=== PATIENT | female | born 1980 | race Caucasian/White ===

== ENCOUNTER 2021-02-16 09:15 | Outpatient (REF) | payer OTHER, SELFPAY ==
[2021-02-16 11:58] LABS: Hematocrit 37.4 % (37.0-47.0); Hemoglobin 12.1 g/dl (12.0-16.0); Mean Corpuscular HGB Conc 32.4 g/dl (31.0-35.0); Mean Corpuscular Hemoglobin 28.8 pg (27.0-33.0); Mean Platelet Volume 10.8 fL (9.4-12.3); Platelet Count 276 X10*3/uL (160-400); Red Cell Distribution Width 13.2 % (11.0-16.0); White Blood Count 6.1 X10*3/uL (4.8-10.8)
[2021-02-16 12:03] LABS: Appearance Urine HAZY; Color Urine YELLOW; Glucose Urine UA NEG (NEG); Leukocyte Esterase Urine NEG (NEG); Nitrite Urine NEG (NEG); Urine Blood TRACE (NEG); Urine Ketones NEG (NEG); Urine Protein NEG (NEG-TRACE)
[2021-02-16 12:08] LABS: Alanine Aminotransferase 25 U/L (0-31); Albumin Level 4.1 g/dL (3.5-5.0); Alkaline Phosphatase 62 U/L (39-117); Anion Gap 10 (12-20); Aspartate Amino Transferase 17 U/L (5-31); Bilirubin Total 0.4 mg/dL (0.0-1.0); Blood Urea Nitrogen 10 mg/dL (9-16); Calcium 8.8 mg/dL (8.4-10.2); Carbon Dioxide 26 mmol/L (22-29); Chloride 108 mmol/L (96-108); Cholesterol 160 mg/dL; Estimated Glomerular Filt Rate > 60; Glucose Fasting 96 mg/dL (60-99); HDL Cholesterol 48 mg/dL; Iron 67 mcg/dL (30-160); LDL Cholesterol Calculated 99 mg/dl; Percent Iron Saturation 19 % (15-50); Potassium 4.1 mmol/L (3.3-5.1); Sodium 140 mmol/L (135-145); Total Iron Binding Capacity 350 mcg/dL (228-428); Total Protein 7.1 g/dL (6.5-8.0); Triglycerides 67 mg/dL; Unsaturated Iron Binding 283 ug/dL
[2021-02-16 12:29] LABS: TSH reflex Free T4 1.31 uIU/mL (0.32-4.0); Vitamin D 25-OH Total 24.3 ng/mL (>30)
[2021-02-16 12:38] LABS: Mucus Urine 1+ /LPF; RBC Urine 0 /HPF (0); Squamous Epithelial Cell Urine TRACE /LPF; WBC Urine 0-2 /HPF (0-4)
== END 2021-02-16 09:16 | disposition home or self-care (01) ==
LOC: HO.HMGCLDS 09:15
PROVIDERS: PCP Internal Medicine; Visit Provider Internal Medicine
DX: Z00.00 Encounter for general adult medical examination without abnormal findings (principal)
CPT/HCPCS: 36415; 80053; 80061; 81001; 82306; 83540; 84443; 85027

== ENCOUNTER 2022-05-26 09:06 | Outpatient (REF) | payer OTHER, SELFPAY ==
[2022-05-26 11:12] LABS: MANUAL DIFF FLAG NO
[2022-05-26 11:20] LABS: Basophils Percent Auto 0.6 % (0-2); Eosinophils Absolute Auto 0.4 X10*3/uL (0.0-0.4); Eosinophils Percent Auto 4.9 % (0-4); Hematocrit 39.4 % (37.0-47.0); Hemoglobin 12.6 g/dl (12.0-16.0); Imm Gran Abs Auto 0.02 X10*3/uL (0.00-0.03); Imm Gran Pct Auto 0.3 % (0.0-0.4); Lymphocytes Absolute Auto 2.1 X10*3/uL (1.2-4.9); Lymphocytes Percent Auto 28.4 % (20-40); Mean Corpuscular Hemoglobin 28.5 pg (27.0-33.0); Mean Corpuscular Volume 89.1 fL (80.0-98.0); Mean Platelet Volume 11.7 fL (9.4-12.3); Monocytes Absolute Auto 0.5 X10*3/uL (0.1-1.2); Monocytes Percent Auto 6.4 % (2-11); Neutrophils Absolute Auto 4.3 x10*3/uL (2.0-8.3); Neutrophils Percent Auto 59.4 % (45-73); Platelet Count 233 X10*3/uL (160-400); Red Blood Count 4.42 X10*6/uL (4.20-5.50); Red Cell Distribution Width 13.3 % (11.0-16.0); White Blood Count 7.2 X10*3/uL (4.8-10.8)
[2022-05-26 11:42] LABS: Alanine Aminotransferase 31 U/L (0-31); Albumin Level 4.2 g/dL (3.5-5.0); Alkaline Phosphatase 59 U/L (39-117); Anion Gap 14 (12-20); Aspartate Amino Transferase 24 U/L (5-31); Bilirubin Total 0.9 mg/dL (0.0-1.0); Blood Urea Nitrogen 11 mg/dL (9-16); Calcium 8.6 mg/dL (8.4-10.2); Carbon Dioxide 21 mmol/L (22-29); Chloride 109 mmol/L (96-108); Cholesterol 208 mg/dL; Estimated Glomerular Filt Rate > 60; Glucose Fasting 99 mg/dL (60-99); HDL Cholesterol 64 mg/dL; LDL Cholesterol Calculated 126 mg/dl; Potassium 4.6 mmol/L (3.3-5.1); Sodium 139 mmol/L (135-145); Total Protein 7.1 g/dL (6.5-8.0); Triglycerides 92 mg/dL
[2022-05-26 11:59] LABS: Appearance Urine Clear; Color Urine Yellow; Glucose Urine UA Negative (Negative); Leukocyte Esterase Urine Negative (Negative); Nitrite Urine Negative (Negative); PH 6.5 (5.0-9.0); UMIC TRIGGER UA YES; Urine Blood Trace (Negative); Urine Ketones Negative (Negative); Urine Protein Negative (Neg-Trace)
[2022-05-26 12:00] LABS: TSH reflex Free T4 1.59 uIU/mL (0.32-4.0)
[2022-05-26 12:05] LABS: Bacteria Urine None Seen (None Seen); Hyaline Casts Urine 0-2 /LPF (0-2); Squamous Epithelial Cell Urine 0-2 /HPF (0-2); WBC Urine 0-5 /HPF (0-5)
== END 2022-05-26 09:07 | disposition home or self-care (01) ==
LOC: HO.HMGCLDS 09:06
PROVIDERS: PCP Internal Medicine; Visit Provider Internal Medicine
DX: Z00.00 Encounter for general adult medical examination without abnormal findings (principal)
CPT/HCPCS: 36415; 80053; 80061; 81001; 84443; 85025

== ENCOUNTER 2022-09-01 08:31 | Outpatient (AMB) | payer OTHER, SELFPAY ==
[2022-09-01 08:38] VITALS: BP 126/90; PULSE 78; O2SAT 98; BMI 25.2
--- NOTE | 2022-09-01 08:38 | A.OFFPC_ITS ---
Vital Signs 09/01/22 08:38 Height 5 ft 7 in Weight 161 lb BMI 25.2 BP 126/90 H Blood Pressure Location Rt brachial Position Sitting Pulse 78 Pulse Source Pulse Oximeter Pulse Oximetry (%) 98 Oxygen Delivery Method Room Air Intake Visit Reasons: Elevated BP Intake Note: Pt is here today for a sick visit. Pt c/o elevated BP headaches. Allergies oxycodone Allergy (Unknown, Verified 09/01/22 08:45) unknown penicillin V Allergy (Unknown, Verified 09/01/22 08:45) unknown Tobacco use date assessed: 09/01/22 Dental Screening Dental Screen Date: 09/01/22 Did you have a dental visit in the last 12 months?: Yes Did you have a dental problem in the last 6 months where you did not have access to dental care?: No Was dental information given to patient?: Patient has dentist HPI Elevated BP HPI Details Pt has noticed elevated BP and not feeling well 4 weeks ago. Pt reports starting GARZA starting at the back and feeling of hot, tightness in the neck lasting a few mins. Pt reports increased stress at work because of new employees. Patient has been checking her blood pressure occasionally with the readings up to 140/90. She has not been exercising regularly. Patient complains of recurrent sinusitis despite using Flonase and taking antihistamine on regular basis. She was diagnosed with seasonal allergies 5 years ago. Patient is interested in following up with instrument and control technician [facility] Medical History Allergic rhinitis Ankle fracture, lateral malleolus, closed Annual physical exam Normal pelvic exam Sinusitis Family History Father No problems noted. Mother No problems noted. Son No problems noted. Social History Housing: House Alcohol intake: current Alcohol intake frequency: holidays/special occasions only Patient Tobacco Use Status: Never used Tobacco e-Cigarette/Vaping Use: Never Used Current occupational status: employed Cognitive needs: No Hearing needs: No Vision needs: Yes Questionnaire Thrive Questionnaire Date Thrive assessed: 05/26/22 AUDIT C Alcohol Use Questionnaire (AUDIT-C) 1. How often do you have a drink containing alcohol?: Monthly or less 2. How many drinks containing alcohol do you have on a typical day when you are drinking?: 1 or 2 3. How often do you have six or more drinks on one occasion?: Never Total Score: 1 AYLIN-7 AMB Questionnaire AYLIN-7 Date AYLIN - 7 assessed: 05/26/22 Source: Developed by Drs. Joaquín Newton, Ivy De La O, Rashel Acuna and colleagues, with an educational hernandez from [employer]. Review of Systems Const All systems reviewed & are unremarkable except as noted in HPI and below Reports no additional complaints Eyes Reports no additional complaints ENT Reports no additional complaints Card Reports no additional complaints Resp Reports no additional complaints GI Reports no additional complaints Reports no additional complaints Physical exam (Primary Care) Vital Signs: Last Vital Signs Pulse 78 09/01/22 08:38 BP 126/90 H 09/01/22 08:38 Pulse Ox 98 09/01/22 08:38 Oxygen Delivery Method Room Air 09/01/22 08:38 BMI result Body Mass Index 25.2 Tobacco/Smoking Status: Tobacco use Status Tobacco use date assessed 09/01/22 09/01/22 08:49 Patient Tobacco Use Status Never used Tobacco 09/01/22 08:38 e-Cigarette/Vaping Use Never Used 09/01/22 08:38 Thrive Assessment: Date of Thrive Assessment Date Thrive assessed 05/26/22 09/01/22 08:38 Const General: no acute distress HENMT Head: Yes normal to inspection Ears: hearing grossly normal bilaterally General nose exam: Normal external nose present Face and sinus: Yes normal facial exam Mouth: Normal oral and palatal mucosa present Throat: Yes posterior oropharynx normal Eyes General: appearance normal, both eyes and all related structures Neck Neck: Yes no lymphadenopathy and Yes supple Resp Effort & Inspection: normal respiratory effort Auscultation: clear to auscultation bilaterally Cardio Rhythm: regular rhythm Heart sounds: S1 normal heart sound present and S2 normal heart sound present GI Inspection: Yes normal to inspection Palpation (GI): Soft to palpation Percussion: Yes normal to percussion Auscultation: normal bowel sounds External Female Exam: normal external appearance Assessment and Plan Assessment & Plan (1) Allergic rhinitis: Code(s): J30.9 - Allergic rhinitis, unspecified Plan: refer to instrument and control technician (2) Chronic sinusitis: Code(s): J32.9 - Chronic sinusitis, unspecified (3) Elevated blood pressure reading without diagnosis of hypertension: Code(s): R03.0 - Elevated blood-pressure reading, without diagnosis of hypertension Plan: Lifestyle modification including regular exercises low sodium diet discussed with the patient. she will follow-up in 2 months for blood pressure check Orders: Referrals Allergy & Immunology Referral J30.9 - Allergic rhinitis, unspecified, J32.9 - Chronic sinusitis, unspecified Coding Level of Care Code Est Pt Level 3 (10871) Diagnoses Allergic rhinitis J30.9 Chronic sinusitis J32.9 Elevated blood pressure reading without diagnosis of hypertension R03.0
== END 2022-09-01 09:48 | disposition home or self-care (01) ==
PROVIDERS: PCP Internal Medicine; Visit Provider Internal Medicine
DX: J30.9 Allergic rhinitis, unspecified (principal); J32.9 Chronic sinusitis, unspecified; R03.0 Elevated blood-pressure reading, without diagnosis of hypertension
CPT/HCPCS: 99213

== ENCOUNTER 2022-09-07 08:17 | Outpatient (AMB) | payer OTHER, SELFPAY ==
--- NOTE | 2022-09-07 08:39 | MHC.OFFWIV ---
Intake Vital Signs 09/07/22 08:40 Height 5 ft 7 in BP 138/80 Blood Pressure Location Lt brachial Position Sitting Pulse 79 Pulse Source Pulse Oximeter Temp 97.7 F Temp Source Temporal Artery Scan Pulse Oximetry (%) 98 Oxygen Delivery Method Room Air Intake Visit Reasons: EP, Bladder infection? Intake Note: Pt is here c/o possible bladder infection. Pt states frequent urination and swelling pain on her bladder. Pt states she is very itchy and feels a lot of pressure. Patient Tobacco Use Status: Never used Tobacco Allergies oxycodone Allergy (Unknown, Verified 09/07/22 08:39) unknown penicillin V Allergy (Unknown, Verified 09/07/22 08:39) unknown Do you need a note to return to daycare/school/sports/work: Yes HPI HPI Comments History of Present Illness Details 09 42-year-old female without significant medical history presents with fatigue, malaise, urinary frequency, urgency, dysuria for the past five days, she is concerned she may have a bladder infection. Patient reports she has had 1 before and it is felt similar. Patient reports symptoms are not improving. Patient going to the bathroom frequently, darker colored urine. Has tried AZO [id number] a few doses with little to no relief. Denies flank pain, back pain, nausea, vomiting, abdominal pain, headache, vision changes, dizziness, weakness, fevers and chills. No chest pain or shortness of breath. Physical exam benign. Likely cystitis versus UTI. Unlikely pyelonephritis, obstructing uropathy, acute abdomen. Other differentials include STDs which patient reports she is not concerned about or yeast infection but patient denies vaginal discharge. Plan Macrobid, Pyridium, PCP follow-up. Encouraged to drink plenty of fluids. Educated patient on diagnosis and treatment plan, answered all question, patient verbalizes understanding. At this time patient will be discharged home, advised to return with new or worsening symptoms. Educated on worrisome signs and symptoms and when to return. At this time I feel comfortable discharge home. [facility] Medical History Allergic rhinitis Ankle fracture, lateral malleolus, closed Annual physical exam Normal pelvic exam Sinusitis Family History Father No problems noted. Mother No problems noted. Son No problems noted. Social History Housing: House Alcohol intake: current Alcohol intake frequency: holidays/special occasions only Patient Tobacco Use Status: Never used Tobacco e-Cigarette/Vaping Use: Never Used Current occupational status: employed Cognitive needs: No Hearing needs: No Vision needs: Yes Review of Systems Const Details: Constitutional : No Weight loss, No Fever, No Chills, No Fatigue, No Malaise ENT/Mouth : No sore throat, No Rhinorrhea Eyes: No Eye Pain, No Swelling, No Redness Cardiovascular : No Chest Pain, No SOB, No Dyspnea on Exertion, No Orthopnea, No Edema, No Palpitations Respiratory : No Cough, No Sputum, No Wheezing Gastrointestinal : No Nausea, No Vomiting, No Diarrhea, No Constipation, No abdominal Pain, No Hematochezia, No Melena Genitourinary : + Dysuria, + Urinary Frequency, No Hematuria, Musculoskeletal : No joint pain, No Myalgias, No Joint Swelling Skin : No Skin Lesions, No rash Neuro : No Weakness, No Numbness, No Dizziness, No Headache Psych : No Anxiety/Panic, No Depression All other systems reviewed and are negative All systems reviewed & are unremarkable except as noted in HPI and below Physical Exam Vital Signs: Last Vital Signs Temp 97.7 F 09/07/22 08:40 Pulse 79 09/07/22 08:40 BP 138/80 09/07/22 08:40 Pulse Ox 98 09/07/22 08:40 Oxygen Delivery Method Room Air 09/07/22 08:40 vss Appearance: Alert.? Oriented X3.? No acute distress.? Head: Normocephalic, atraumatic, no step-offs or deformities Eyes: Pupils equal, round and reactive to light.? CVS: Normal heart rate and rhythm.? Pulses normal.? Respiratory: No respiratory distress.? Breath sounds normal.? Abdomen: Soft and nontender.? Skin: Skin warm and dry.? Normal skin color.? Normal skin turgor.? Extremities: No lower extremity edema.? No calf ttp. 5/5 strength to bilateral upper and lower extremities Back: No CVA tenderness bilaterally Neuro: Oriented X 3.? No motor deficit.? No sensory deficit. CN 2-12 intact Results AMB Urinalysis, Automated UA Leukoctes 0 Naz/uL Last Edit by Carmel Sales, RYAN on 09/07/22 08:57 UA Nitrite Negative Last Edit by Carmel Sales, PREPARATION SUPERVISOR [employer]ING on 09/07/22 08:57 UA Urobilinogen 0.2 mg/dL Last Edit by Carmel Sales, PREPARATION SUPERVISOR [employer]NING on 09/07/22 08:57 UA Protein 0 mg/dL Last Edit by Carmle Sales, PREPARATION SUPERVISOR [employer]ING on 09/07/22 08:57 UA pH 6.0 Last Edit by Carmel Sales, PREPARATION SUPERVISOR [employer]ING on 09/07/22 08:57 UA Blood 0 Ji/uL Last Edit by Carmel Sales, PREPARATION SUPERVISOR [employer]ING on 09/07/22 08:57 UA Specific [place] 1.015 Last Edit by Carmel Sales, PREPARATION SUPERVISOR [employer]ING on 09/07/22 08:57 UA Ketone Negative Last Edit by Carmel Sales, PREPARATION SUPERVISOR [employer]ING on 09/07/22 08:57 UA Bilirubin 0 mg/dL Last Edit by Carmel Sales, PREPARATION SUPERVISOR [employer]NING on 09/07/22 08:57 UA Glucose 0 mg/dL Last Edit by Carmel Sales, PREPARATION SUPERVISOR [employer]ING on 09/07/22 08:57 Results Reviewed Results Reviewed: Laboratory Last Values Urine pH (Auto) 6.0 09/07/22 08:56 Specific [place] (Auto) 1.015 09/07/22 08:56 Urine Protein (Auto) 0 mg/dL 09/07/22 08:56 Glucose (UA)(Auto) 0 mg/dL 09/07/22 08:56 Urine Ketones (Auto) Negative 09/07/22 08:56 Urine Blood (Auto) 0 Ji/uL 09/07/22 08:56 Urine Nitrite (Auto) Negative 09/07/22 08:56 Urine Bilirubin (Auto) 0 mg/dL 09/07/22 08:56 Urine Urobilinogen (Auto) 0.2 mg/dL 09/07/22 08:56 Leukocyte Esterase (Auto) 0 Naz/uL 09/07/22 08:56 Assessment & Plan Assessment & Plan (1) UTI symptoms: Code(s): R39.9 - Unspecified symptoms and signs involving the genitourinary system Plan Take your medications as prescribed. If you were prescribed antibiotics today, it is important that you take your medication to their entirety, do not skip any doses, do not finish them early. Follow-up with your primary care provider this week. Return to the emergency department with new or worsening symptoms. Such as fevers, chills, chest pain, shortness of breath, nausea, vomiting, dizziness, headache, vision changes, lethargy In case of emergency call 911 Orders: Orders AMB Urinalysis Automated Today Z13.9 - Encounter for screening, unspecified Medications: New nitrofurantoin monohyd/m-cryst 100 mg (Macrobid) must administer with a meal/food 100 mg PO BID 5 days 10 caps 0RF phenazopyridine (Pyridium) 200 mg PO TID 6 doses 6 tabs 0RF Coding Level of Care Code Est Pt Level 3 (72560) Diagnoses UTI symptoms R39.9
[2022-09-07 08:40] VITALS: BP 138/80; PULSE 79; TEMP 36.5; O2SAT 98
== END 2022-09-07 09:10 | disposition home or self-care (01) ==
PROVIDERS: PCP Internal Medicine; Visit Provider Physician Assistant
DX: Z13.9 Encounter for screening, unspecified (principal); R39.9 Unspecified symptoms and signs involving the genitourinary system
CPT/HCPCS: 81003; 99213

== ENCOUNTER 2022-11-30 11:42 | Outpatient (AMB) | payer OTHER, SELFPAY ==
[2022-11-30 11:49] VITALS: BP 138/88; PULSE 87; O2SAT 100; BMI 26.0
--- NOTE | 2022-11-30 11:49 | MHC.PC.OV ---
Vital Signs 11/30/22 11:49 Height 5 ft 7 in Weight 166 lb BMI 26.0 BP 138/88 Blood Pressure Location Lt brachial Position Sitting Pulse 87 Pulse Source Pulse Oximeter Pulse Oximetry (%) 100 Oxygen Delivery Method Room Air Intake Visit Reasons: 2m follow up Intake Note: Pt is here today for 2 months follow up visit on BP. Allergies oxycodone Allergy (Unknown, Verified 11/30/22 11:56) unknown penicillin V Allergy (Unknown, Verified 11/30/22 11:56) unknown Medication List - Last Reconciled 11/30/22 by Eveline Chung MD cetirizine (Zyrtec) 10 mg PO DAILY PRN multivitamin 1 tab PO DAILY norethindrone (contraceptive) (Incassia) 0.35 mg PO DAILY olmesartan 5 mg PO DAILY phenazopyridine (Pyridium) 200 mg PO TID 6 doses Tobacco use date assessed: 09/01/22 HPI 2m follow up HPI Details Pt presents complaining of elevated blood pressure and headaches on and off. She has been following low sodium diet and denies excessive stress. [facility] Medical History Allergic rhinitis Ankle fracture, lateral malleolus, closed Annual physical exam Normal pelvic exam Sinusitis Family History Father No problems noted. Mother No problems noted. Son No problems noted. Social History Housing: House Alcohol intake: current Alcohol intake frequency: holidays/special occasions only Patient Tobacco Use Status: Never used Tobacco e-Cigarette/Vaping Use: Never Used Current occupational status: employed Cognitive needs: No Hearing needs: No Vision needs: Yes Questionnaire Thrive Questionnaire Date Thrive assessed: 05/26/22 AYLIN-7 AMB Questionnaire AYLIN-7 Date AYLIN - 7 assessed: 05/26/22 Source: Developed by Drs. Joaquín Newton, Ivy De La O, Rashel Acuna and colleagues, with an educational hernandez from [employer]. Review of Systems Const All systems reviewed & are unremarkable except as noted in HPI and below Reports no additional complaints Eyes Reports no additional complaints ENT Reports no additional complaints Card Reports no additional complaints Resp Reports no additional complaints GI Reports no additional complaints Reports no additional complaints Physical exam (Primary Care) Vital Signs: Last Vital Signs Pulse 87 11/30/22 11:49 BP 138/88 11/30/22 11:49 Pulse Ox 100 11/30/22 11:49 Oxygen Delivery Method Room Air 11/30/22 11:49 BMI result Body Mass Index 26.0 Tobacco/Smoking Status: Tobacco use Status Tobacco use date assessed 09/01/22 11/30/22 11:49 Patient Tobacco Use Status Never used Tobacco 11/30/22 11:49 e-Cigarette/Vaping Use Never Used 11/30/22 11:49 Thrive Assessment: Date of Thrive Assessment Date Thrive assessed 05/26/22 11/30/22 11:49 Const General: no acute distress HENMT Head: Yes normal to inspection Ears: hearing grossly normal bilaterally Neck Neck: Yes supple Resp Effort & Inspection: normal respiratory effort Auscultation: clear to auscultation bilaterally Cardio Rhythm: regular rhythm Heart sounds: S1 normal heart sound present and S2 normal heart sound present GI Inspection: Yes normal to inspection Palpation (GI): Soft to palpation Percussion: Yes normal to percussion Assessment and Plan Assessment & Plan (1) HTN (hypertension): Code(s): I10 - Essential (primary) hypertension Plan: Start olmesartan 5 mg q.d., follow low sodium diet and increase physical activity. Follow-up in 1 month for blood pressure check and fasting labs before Orders: Orders Comprehensive [place]. Panel Fast 1 Month I10 - Essential (primary) hypertension Lipid Panel 1 Month I10 - Essential (primary) hypertension Complete Blood Count Auto Diff 1 Month I10 - Essential (primary) hypertension Medications: New olmesartan 5 mg PO DAILY 30 tabs 1RF Coding Level of Care Code Est Pt Level 3 (09145) Diagnoses HTN (hypertension) I10
== END 2022-11-30 13:31 | disposition home or self-care (01) ==
PROVIDERS: PCP Internal Medicine; Visit Provider Internal Medicine
DX: I10 Essential (primary) hypertension (principal)
CPT/HCPCS: 99213

== ENCOUNTER 2022-12-22 07:32 | Outpatient (REF) | payer OTHER, SELFPAY ==
[2022-12-22 11:07] LABS: MANUAL DIFF FLAG NO
[2022-12-22 11:09] LABS: Basophils Percent Auto 0.5 % (0-2); Eosinophils Absolute Auto 0.3 X10*3/uL (0.0-0.4); Eosinophils Percent Auto 4.2 % (0-4); Hematocrit 39.1 % (37.0-47.0); Hemoglobin 12.5 g/dl (12.0-16.0); Imm Gran Abs Auto 0.02 X10*3/uL (0.00-0.03); Imm Gran Pct Auto 0.3 % (0.0-0.4); Lymphocytes Absolute Auto 2.1 X10*3/uL (1.2-4.9); Lymphocytes Percent Auto 33.5 % (20-40); Mean Corpuscular Volume 90.7 fL (80.0-98.0); Mean Platelet Volume 10.9 fL (9.4-12.3); Monocytes Absolute Auto 0.4 X10*3/uL (0.1-1.2); Monocytes Percent Auto 6.1 % (2-11); Neutrophils Absolute Auto 3.5 x10*3/uL (2.0-8.3); Neutrophils Percent Auto 55.4 % (45-73); Platelet Count 261 X10*3/uL (160-400); Red Blood Count 4.31 X10*6/uL (4.20-5.50); Red Cell Distribution Width 13.2 % (11.0-16.0); White Blood Count 6.3 X10*3/uL (4.8-10.8)
[2022-12-22 11:42] LABS: Alanine Aminotransferase 12 U/L (0-31); Albumin Level 4.2 g/dL (3.5-5.0); Alkaline Phosphatase 56 U/L (39-117); Anion Gap 10 (12-20); Aspartate Amino Transferase 15 U/L (5-31); Bilirubin Total 0.4 mg/dL (0.0-1.0); Blood Urea Nitrogen 12 mg/dL (9-16); Calcium 8.9 mg/dL (8.4-10.2); Carbon Dioxide 26 mmol/L (22-29); Chloride 108 mmol/L (96-108); Cholesterol 186 mg/dL (<200); Estimated Glomerular Filt Rate > 60; Glucose Fasting 96 mg/dL (60-99); HDL Cholesterol 55 mg/dL (>40); LDL Cholesterol Calculated 111 mg/dL (<100); Potassium 3.9 mmol/L (3.3-5.1); Sodium 140 mmol/L (135-145); Total Protein 7.4 g/dL (6.5-8.0); Triglycerides 103 mg/dL (<150)
== END 2022-12-22 07:33 | disposition home or self-care (01) ==
LOC: HO.HMGCLDS 07:32
PROVIDERS: PCP Internal Medicine; Visit Provider Internal Medicine
DX: I10 Essential (primary) hypertension (principal)
CPT/HCPCS: 36415; 80053; 80061; 85025

== ENCOUNTER 2023-01-12 12:40 | Outpatient (AMB) | payer OTHER, SELFPAY ==
[2023-01-12 12:46] VITALS: BP 122/74; PULSE 92; O2SAT 97; BMI 25.4
--- NOTE | 2023-01-12 12:46 | A.OFFPC_ITS ---
Vital Signs 01/12/23 12:46 Height 5 ft 7 in Weight 162 lb BMI 25.4 BP 122/74 Blood Pressure Location Lt brachial Position Sitting Pulse 92 Pulse Source Pulse Oximeter Pulse Oximetry (%) 97 Oxygen Delivery Method Room Air Intake Visit Reasons: one month fu Intake Note: Pt is here today for one follow up visit on BP. Allergies oxycodone Allergy (Unknown, Verified 01/12/23 12:50) unknown penicillin V Allergy (Unknown, Verified 01/12/23 12:50) unknown Medication List - Last Reconciled 01/12/23 by Eveline Chung MD cetirizine (Zyrtec) 10 mg PO DAILY PRN multivitamin 1 tab PO DAILY norethindrone (contraceptive) (Incassia) 0.35 mg PO DAILY olmesartan 5 mg PO DAILY phenazopyridine (Pyridium) 200 mg PO TID 6 doses Tobacco use date assessed: 01/12/23 Dental Screening Dental Screen Date: 01/12/23 Did you have a dental visit in the last 12 months?: Yes Did you have a dental problem in the last 6 months where you did not have access to dental care?: No Was dental information given to patient?: Patient has dentist HPI one month fu HPI Details Pt presents for f/u HTN, better on Olmesartan. Pt c/o dysuria and increased urinary frequency for 2 days, no fever, chiils, abd pain PFSH Medical History Allergic rhinitis Ankle fracture, lateral malleolus, closed Annual physical exam Normal pelvic exam Sinusitis Family History Father No problems noted. Mother No problems noted. Son No problems noted. Social History Housing: House Alcohol intake: current Alcohol intake frequency: holidays/special occasions only Patient Tobacco Use Status: Never used Tobacco e-Cigarette/Vaping Use: Never Used Current occupational status: employed Cognitive needs: No Hearing needs: No Vision needs: Yes Questionnaire Thrive Questionnaire Date Thrive assessed: 05/26/22 AYLIN-7 AMB Questionnaire AYLIN-7 Date AYLIN - 7 assessed: 05/26/22 Source: Developed by Drs. Joaquín Newton, Ivy De La O, Rashel Acuna and colleagues, with an educational hernandez from [employer]. Review of Systems Const All systems reviewed & are unremarkable except as noted in HPI and below Reports no additional complaints Eyes Reports no additional complaints ENT Reports no additional complaints Card Reports no additional complaints Resp Reports no additional complaints GI Reports no additional complaints Physical exam (Primary Care) Vital Signs: Last Vital Signs Pulse 92 01/12/23 12:46 BP 122/74 01/12/23 12:46 Pulse Ox 97 01/12/23 12:46 Oxygen Delivery Method Room Air 01/12/23 12:46 BMI result Body Mass Index 25.4 Tobacco/Smoking Status: Tobacco use Status Tobacco use date assessed 01/12/23 01/12/23 12:55 Patient Tobacco Use Status Never used Tobacco 01/12/23 12:55 e-Cigarette/Vaping Use Never Used 01/12/23 12:55 Thrive Assessment: Date of Thrive Assessment Date Thrive assessed 05/26/22 01/12/23 12:55 Const General: no acute distress HENMT Head: Yes normal to inspection Neck Neck: Yes supple Resp Effort & Inspection: normal respiratory effort Auscultation: clear to auscultation bilaterally Cardio Rhythm: regular rhythm Heart sounds: S1 normal heart sound present and S2 normal heart sound present GI Inspection: Yes normal to inspection Palpation (GI): Soft to palpation Auscultation: normal bowel sounds Assessment and Plan Assessment & Plan (1) HTN (hypertension): Code(s): I10 - Essential (primary) hypertension Plan: cont med, f/u 6 months (2) Dysuria: Code(s): R30.0 - Dysuria Plan: check UA, tx with Cipro for 3 days Orders: Orders UA CC w/rflx Micro + Cult Today I10 - Essential (primary) hypertension, R30.0 - Dysuria Medications: New ciprofloxacin HCl 250 mg PO BID 6 tabs 0RF Refilled olmesartan 5 mg PO DAILY 90 tabs 3RF Coding Level of Care Code Est Pt Level 3 (62709) Diagnoses HTN (hypertension) I10 Dysuria R30.0
== END 2023-01-12 13:42 | disposition home or self-care (01) ==
PROVIDERS: PCP Internal Medicine; Visit Provider Internal Medicine
DX: I10 Essential (primary) hypertension (principal); R30.0 Dysuria
CPT/HCPCS: 99213

== ENCOUNTER 2023-01-12 13:38 | Outpatient (REF) | payer OTHER, SELFPAY ==
[2023-01-12 16:09] LABS: Appearance Urine Clear; Color Urine Yellow; Glucose Urine UA Negative (Negative); Leukocyte Esterase Urine Small (1+) (Negative); Nitrite Urine Negative (Negative); Specific Gravity - Urine 1.025 (1.005-1.025); UMIC TRIGGER UACC YES; Urine Blood Small (1+) (Negative); Urine Ketones Negative (Negative); Urine Protein Negative (Neg-Trace)
[2023-01-12 16:14] LABS: Bacteria Urine None Seen (None Seen); Hyaline Casts Urine 0-2 /LPF (0-2); Squamous Epithelial Cell Urine 0-2 /HPF (0-2); UACC Culture Trigger YES; WBC Urine 21-50 /HPF (0-5)
== END 2023-01-12 13:39 | disposition home or self-care (01) ==
LOC: HO.HMGCLDS 13:38
PROVIDERS: PCP Internal Medicine; Visit Provider Internal Medicine
DX: R30.0 Dysuria (principal); I10 Essential (primary) hypertension
CPT/HCPCS: 81001; 87086; 87088; 87186

== ENCOUNTER 2023-06-02 08:06 | Outpatient (AMB) | payer BC, SELFPAY ==
[2023-06-02 08:09] VITALS: BP 120/70; PULSE 89; O2SAT 95; BMI 23.3
--- NOTE | 2023-06-02 08:09 | MHC.PC.OV ---
Vital Signs 06/02/23 08:09 Height 5 ft 7 in Weight 149 lb BMI 23.3 BP 120/70 Blood Pressure Location Rt brachial Position Sitting Pulse 89 Pulse Source Pulse Oximeter Pulse Oximetry (%) 95 Oxygen Delivery Method Room Air Intake Visit Reasons: PE Intake Note: Pt is here today for PE. Allergies oxycodone Allergy (Unknown, Verified 06/02/23 08:11) unknown penicillin V Allergy (Unknown, Verified 06/02/23 08:11) unknown Medication List - Last Reconciled 06/02/23 by Eveline Chung MD cetirizine (Zyrtec) 10 mg PO DAILY PRN multivitamin 1 tab PO DAILY norethindrone (contraceptive) (Incassia) 0.35 mg PO DAILY olmesartan 5 mg PO DAILY Tobacco use date assessed: 06/02/23 Dental Screening Dental Screen Date: 06/02/23 Did you have a dental visit in the last 12 months?: Yes Did you have a dental problem in the last 6 months where you did not have access to dental care?: No Was dental information given to patient?: Patient has dentist HPI PE HPI Details Pt presents for PE. PFSH Medical History Normal pelvic exam Annual physical exam Allergic rhinitis Sinusitis Ankle fracture, lateral malleolus, closed Surgical History Hx of section Family History Father No problems noted. Mother No problems noted. Son No problems noted. Social History Housing: House Alcohol intake: current Alcohol intake frequency: holidays/special occasions only Patient Tobacco Use Status: Never used Tobacco e-Cigarette/Vaping Use: Never Used service: No Current occupational status: employed Cognitive needs: No Hearing needs: No Vision needs: Yes Questionnaire PHQ-9 Over the last 2 weeks, how often have you been bothered by any of the following problems? 1. Little interest or pleasure in doing things: not at all 2. Feeling down, depressed, or hopeless: not at all 3. Trouble falling or staying asleep, or sleeping too much: not at all 4. Feeling tired or having little energy: not at all 5. Poor appetite or overeating: not at all 6. Feeling bad about yourself - or that you are a failure or have let yourself or your family down: not at all 7. Trouble concentrating on things, such as reading the newspaper or watching television: not at all 8. Moving or speaking so slowly that other people could have noticed. Or the opposite - being so fidgety or restless that you have been moving around a lot more than usual: not at all 9. Thoughts that you would be better off or of hurting yourself in some way: not at all Total score: 0 Depression Screening Interpretation: Negative Depression Screening Done: Yes Source: Developed by Drs. Joaquín Newton, Ivy De La O, Rashel Acuna and colleagues, with an educational hernandez from [employer]. Thrive Questionnaire Date Thrive assessed: 06/02/23 I am a: Patient What is your living situation today?: I have a steady place to live Within the past 12 months, did the food you bought not last and you didn't have the money to get more?: Never true Within the past 12 months, did you worry whether your food would run out before you got money to buy more?: Never true Do you have trouble paying for medicines?: No Do you have trouble getting transportation to medical appointments?: No Do you have trouble paying your heating and electricity bill?: No Do you have trouble taking care of your child, family member or friend?: No Do you have trouble with day-to-day activities such as bathing, preparing meals, shopping, managing finances, etc.?: No Are you currently unemployed and looking for a job?: No Are you interested in more education?: No Please select the resources that you would like help with: None THRIVE Score: 0 AUDIT C Alcohol Use Questionnaire (AUDIT-C) 1. How often do you have a drink containing alcohol?: Monthly or less 2. How many drinks containing alcohol do you have on a typical day when you are drinking?: 1 or 2 3. How often do you have six or more drinks on one occasion?: Never Total Score: 1 AYLIN-7 AMB Questionnaire AYLIN-7 Date AYLIN - 7 assessed: 06/02/23 Feeling nervous, anxious, or on edge: 0 = Not at all Not being able to stop or control worryin = Not at all Worrying too much about different things: 0 = Not at all Trouble relaxin = Not at all Being so restless that it is hard to sit still: 0 = Not at all Becoming easily annoyed or irritable: 0 = Not at all Feeling afraid as if something awful might happen: 0 = Not at all Total AYLIN-7 score (0-4 normal; 5-9 mild; 10-14 moderate; 15-21 severe): 0 Source: Developed by Drs. Joaquín Newton, Ivy De La O, Rashel Acuna and colleagues, with an educational hernandez from [employer]. Review of Systems Const All systems reviewed & are unremarkable except as noted in HPI and below Reports no additional complaints Eyes Reports no additional complaints ENT Reports no additional complaints Card Reports no additional complaints Resp Reports no additional complaints GI Reports no additional complaints Reports no additional complaints Physical exam (Primary Care) Vital Signs: Last Vital Signs Pulse 89 06/02/23 08:09 BP 120/70 06/02/23 08:09 Pulse Ox 95 06/02/23 08:09 Oxygen Delivery Method Room Air 06/02/23 08:09 BMI result Body Mass Index 23.3 Tobacco/Smoking Status: Tobacco use Status Tobacco use date assessed 06/02/23 06/02/23 08:15 Patient Tobacco Use Status Never used Tobacco 06/02/23 08:15 e-Cigarette/Vaping Use Never Used 06/02/23 08:15 PHQ-9: PHQ-9 Score PHQ-9: Total score 0 06/02/23 08:42 Depression Screening Interpretation: Negative Thrive Assessment: Date of Thrive Assessment Date Thrive assessed 06/02/23 06/02/23 08:42 Const General: no acute distress HENMT Head: Yes normal to inspection Ears: hearing grossly normal bilaterally General nose exam: Normal external nose present Face and sinus: Yes normal facial exam Mouth: Normal oral and palatal mucosa present Throat: Yes posterior oropharynx normal Eyes General: appearance normal, both eyes and all related structures Neck Neck: Yes supple Resp Effort & Inspection: normal respiratory effort Auscultation: clear to auscultation bilaterally Cardio Rhythm: regular rhythm Heart sounds: S1 normal heart sound present and S2 normal heart sound present GI Inspection: Yes normal to inspection Palpation (GI): Soft to palpation Percussion: Yes normal to percussion Auscultation: normal bowel sounds Assessment and Plan Assessment & Plan (1) Annual physical exam: Code(s): Z00.00 - Encounter for general adult medical examination without abnormal findings Plan: Well-balanced diet regular physical activity discussed with the patient she is up-to-date with the Pap smear and mammogram by camera operator (2) HTN (hypertension): Code(s): I10 - Essential (primary) hypertension Plan: Continue olmesartan follow-up in 6 months Orders: Orders Comprehensive [place]. Panel Fast Today I10 - Essential (primary) hypertension, Z00.00 - Encounter for general adult medical examination without abnormal findings Lipid Panel Today I10 - Essential (primary) hypertension, Z00.00 - Encounter for general adult medical examination without abnormal findings Complete Blood Count Auto Diff Today I10 - Essential (primary) hypertension, Z00.00 - Encounter for general adult medical examination without abnormal findings TSH reflex Free T4 Today I10 - Essential (primary) hypertension, Z00.00 - Encounter for general adult medical examination without abnormal findings UA and rflx microscopic Today R30.0 - Dysuria Coding Level of Care Code Est Pt Prev Care 40-64y(24249) Diagnoses Annual physical exam Z00.00 HTN (hypertension) I10
== END 2023-06-02 09:00 | disposition home or self-care (01) ==
PROVIDERS: Visit Provider Internal Medicine
DX: Z00.00 Encounter for general adult medical examination without abnormal findings (principal); I10 Essential (primary) hypertension
CPT/HCPCS: 99396

== ENCOUNTER 2023-06-02 08:42 | Outpatient (REF) | payer BC, SELFPAY ==
[2023-06-02 10:20] LABS: MANUAL DIFF FLAG NO
[2023-06-02 10:32] LABS: Appearance Urine Clear; Color Urine Yellow; Glucose Urine UA Negative (Negative); Leukocyte Esterase Urine Negative (Negative); Nitrite Urine Negative (Negative); PH 6.5 (5.0-9.0); Specific Gravity - Urine 1.015 (1.005-1.025); Urine Blood Negative (Negative); Urine Ketones Negative (Negative); Urine Protein Negative (Neg-Trace)
[2023-06-02 10:34] LABS: Basophils Percent Auto 0.4 % (0-2); Eosinophils Absolute Auto 0.3 X10*3/uL (0.0-0.4); Eosinophils Percent Auto 3.7 % (0-4); Hematocrit 36.6 % (37.0-47.0); Hemoglobin 11.9 g/dl (12.0-16.0); Imm Gran Abs Auto 0.03 X10*3/uL (0.00-0.03); Imm Gran Pct Auto 0.4 % (0.0-0.4); Mean Corpuscular HGB Conc 32.5 g/dl (31.0-35.0); Mean Corpuscular Hemoglobin 29.6 pg (27.0-33.0); Mean Platelet Volume 10.4 fL (9.4-12.3); Monocytes Absolute Auto 0.4 X10*3/uL (0.1-1.2); Monocytes Percent Auto 5.6 % (2-11); Neutrophils Absolute Auto 5.1 x10*3/uL (2.0-8.3); Neutrophils Percent Auto 64.9 % (45-73); Platelet Count 273 X10*3/uL (160-400); Red Blood Count 4.02 X10*6/uL (4.20-5.50); Red Cell Distribution Width 13.3 % (11.0-16.0); White Blood Count 7.8 X10*3/uL (4.8-10.8)
[2023-06-02 11:05] LABS: Alanine Aminotransferase 11 U/L (0-31); Albumin Level 4.1 g/dL (3.5-5.0); Alkaline Phosphatase 55 U/L (39-117); Anion Gap 9 (12-20); Aspartate Amino Transferase 13 U/L (5-31); Bilirubin Total 0.6 mg/dL (0.0-1.0); Blood Urea Nitrogen 12 mg/dL (9-16); Calcium 8.6 mg/dL (8.4-10.2); Carbon Dioxide 26 mmol/L (22-29); Chloride 108 mmol/L (96-108); Cholesterol 170 mg/dL (<200); Estimated Glomerular Filt Rate > 60; Glucose Fasting 93 mg/dL (60-99); HDL Cholesterol 58 mg/dL (>40); LDL Cholesterol Calculated 100 mg/dL (<100); Potassium 3.8 mmol/L (3.3-5.1); Sodium 139 mmol/L (135-145); Total Protein 7.1 g/dL (6.5-8.0); Triglycerides 62 mg/dL (<150)
[2023-06-02 11:07] LABS: TSH reflex Free T4 0.99 uIU/mL (0.32-4.0)
== END 2023-06-02 08:43 | disposition home or self-care (01) ==
LOC: HO.HMGCLDS 08:42
PROVIDERS: PCP Internal Medicine; Visit Provider Internal Medicine
DX: Z00.00 Encounter for general adult medical examination without abnormal findings (principal); I10 Essential (primary) hypertension; R30.0 Dysuria
CPT/HCPCS: 36415; 80053; 80061; 81003; 84443; 85025

== ENCOUNTER 2024-06-05 09:15 | Outpatient (AMB) | payer BC, SELFPAY ==
[2024-06-05 09:21] VITALS: BP 116/74; PULSE 78; RESP 18; TEMP 37.1; O2SAT 100; BMI 23.0
--- NOTE | 2024-06-05 09:21 | A.OFFPC_ITS ---
Vital Signs 06/05/24 09:21 Height 5 ft 7 in Weight 147 lb BMI 23.0 BP 116/74 Blood Pressure Location Lt brachial Position Sitting Respiration 18 Pulse 78 Pulse Source Pulse Oximeter Temp 98.7 F Temp Source Oral Pulse Oximetry (%) 100 Oxygen Delivery Method Room Air Intake Visit Reasons: Annual PE Intake Note: Pt is here today for PE. Pt is fasting today. Allergies oxycodone Allergy (Unknown, Verified 06/05/24 09:23) unknown penicillin V Allergy (Unknown, Verified 06/05/24 09:23) unknown Medication List - Last Reconciled 06/05/24 by Eveline Chung MD cetirizine (Zyrtec) 10 mg PO DAILY PRN multivitamin 1 tab PO DAILY norethindrone (contraceptive) (Incassia) 0.35 mg PO DAILY olmesartan 5 mg PO DAILY Tobacco use date assessed: 06/05/24 Dental Screening Dental Screen Date: 06/05/24 Did you have a dental visit in the last 12 months?: Yes Did you have a dental problem in the last 6 months where you did not have access to dental care?: No Was dental information given to patient?: Patient has dentist HPI Annual PE HPI Details [facility] Medical History Normal pelvic exam Annual physical exam Allergic rhinitis Sinusitis Ankle fracture, lateral malleolus, closed Surgical History Hx of section Family History Father No problems noted. Mother No problems noted. Son No problems noted. Social History Housing: House Alcohol intake: current Alcohol intake frequency: holidays/special occasions only Patient Tobacco Use Status: Never used Tobacco e-Cigarette/Vaping Use: Never Used service: No Current occupational status: employed Cognitive needs: No Hearing needs: No Vision needs: Yes Questionnaire PHQ-9 Over the last 2 weeks, how often have you been bothered by any of the following problems? 1. Little interest or pleasure in doing things: not at all 2. Feeling down, depressed, or hopeless: not at all 3. Trouble falling or staying asleep, or sleeping too much: not at all 4. Feeling tired or having little energy: not at all 5. Poor appetite or overeating: not at all 6. Feeling bad about yourself - or that you are a failure or have let yourself or your family down: not at all 7. Trouble concentrating on things, such as reading the newspaper or watching television: not at all 8. Moving or speaking so slowly that other people could have noticed. Or the opposite - being so fidgety or restless that you have been moving around a lot more than usual: not at all 9. Thoughts that you would be better off or of hurting yourself in some way: not at all Total score: 0 Depression Screening Interpretation: Negative Depression Screening Done: Yes [id number] - PHQ-9 Billing: Yes Source: Developed by Drs. Joaquín Newton, Ivy De La O, Rashel Acuna and colleagues, with an educational hernandez from [employer]. Thrive Questionnaire Date Thrive assessed: 06/05/24 I am a: Patient What is your living situation today?: I have a steady place to live Within the past 12 months, did the food you bought not last and you didn't have the money to get more?: Never true Within the past 12 months, did you worry whether your food would run out before you got money to buy more?: Never true Do you have trouble paying for medicines?: No Do you have trouble getting transportation to medical appointments?: No Do you have trouble paying your heating and electricity bill?: No Do you have trouble taking care of your child, family member or friend?: No Do you have trouble with day-to-day activities such as bathing, preparing meals, shopping, managing finances, etc.?: No Are you currently unemployed and looking for a job?: No Are you interested in more education?: No Please select the resources that you would like help with: None Currently or been in a relationship where the following occur: No concerns reported THRIVE Score: 0 AUDIT C Alcohol Use Questionnaire (AUDIT-C) 1. How often do you have a drink containing alcohol?: Monthly or less 2. How many drinks containing alcohol do you have on a typical day when you are drinking?: 1 or 2 3. How often do you have six or more drinks on one occasion?: Never Total Score: 1 AYLIN-7 AMB Questionnaire AYLIN-7 Date AYLIN - 7 assessed: 06/05/24 Feeling nervous, anxious, or on edge: 0 = Not at all Not being able to stop or control worryin = Not at all Worrying too much about different things: 0 = Not at all Trouble relaxin = Not at all Being so restless that it is hard to sit still: 0 = Not at all Becoming easily annoyed or irritable: 0 = Not at all Feeling afraid as if something awful might happen: 0 = Not at all Total AYLIN-7 score (0-4 normal; 5-9 mild; 10-14 moderate; 15-21 severe): 0 Source: Developed by Drs. Joaquín Newton, Ivy De La O, Rashel Acuna and colleagues, with an educational hernandez from [employer] AYLIN-7 Assessment Billing AYLIN-7 Assessment Tool: AYLIN-7 Assessment 99323 Review of Systems Const All systems reviewed & are unremarkable except as noted in HPI and below Reports no additional complaints Eyes Reports no additional complaints ENT Reports no additional complaints Card Reports no additional complaints Resp Reports no additional complaints GI Reports no additional complaints Reports no additional complaints Physical exam (Primary Care) Vital Signs: Last Vital Signs Temp 98.7 F 06/05/24 09:21 Pulse 78 06/05/24 09:21 Resp 18 06/05/24 09:21 BP 116/74 06/05/24 09:21 Pulse Ox 100 06/05/24 09:21 Oxygen Delivery Method Room Air 06/05/24 09:21 BMI result Body Mass Index 23.0 Tobacco/Smoking Status: Tobacco use Status Tobacco use date assessed 06/05/24 06/05/24 09:30 Patient Tobacco Use Status Never used Tobacco 06/05/24 09:30 e-Cigarette/Vaping Use Never Used 06/05/24 09:30 PHQ-9: PHQ-9 Score PHQ-9: Total score 0 06/05/24 09:30 Depression Screening Interpretation: Negative Thrive Assessment: Date of Thrive Assessment Date Thrive assessed 06/05/24 06/05/24 09:30 Currently or been in a relationship where the following occur: No concerns reported Const General: no acute distress HENMT Head: Yes normal to inspection Ears: hearing grossly normal bilaterally Face and sinus: Yes normal facial exam Mouth: Normal oral and palatal mucosa present Throat: Yes posterior oropharynx normal Eyes General: appearance normal, both eyes and all related structures Neck Neck: Yes no lymphadenopathy and Yes supple Resp Effort & Inspection: normal respiratory effort Auscultation: clear to auscultation bilaterally Cardio Rhythm: regular rhythm Heart sounds: S1 normal heart sound present and S2 normal heart sound present GI Inspection: Yes normal to inspection Palpation (GI): Soft to palpation Percussion: Yes normal to percussion Auscultation: normal bowel sounds Coding Level of Care Code Est Pt Prev Care 40-64y(69479) Diagnoses Annual physical exam Z00. HTN (hypertension) I10 Additional Codes AYLIN-7 Assessment Billing - AYLIN-7 Assessment Tool: AYLIN-7 Assessment [id number] ([id number]) PHQ-9 - 36476 - PHQ-9 Billing: Yes ([id number]) Assessment & Plan Assessment & Plan (1) Annual physical exam: Code(s): Z. - Encounter for general adult medical examination without abnormal findings Category: Medical Plan: Well-balanced diet regular physical activity discussed with the patient. She is up-to-date with the Pap smear by electrical maintenance supervisor and mammogram (2) HTN (hypertension): Code(s): I10 - Essential (primary) hypertension Category: Medical Plan: Continue olmesartan. Patient will return for fasting blood work Orders: Orders UA w Microscopic 1 Year I10 - Essential (primary) hypertension, Z00.00 - Encounter for general adult medical examination without abnormal findings Complete Blood Count Auto Diff Today I10 - Essential (primary) hypertension, Z00.00 - Encounter for general adult medical examination without abnormal findings Comprehensive [place]. Panel Fast Today I10 - Essential (primary) hypertension, Z00.00 - Encounter for general adult medical examination without abnormal findings TSH reflex Free T4 Today I10 - Essential (primary) hypertension, Z00.00 - Encounter for general adult medical examination without abnormal findings Lipid Panel Today I10 - Essential (primary) hypertension, Z00.00 - Encounter for general adult medical examination without abnormal findings UA w Microscopic Today I10 - Essential (primary) hypertension, Z00.00 - Encounter for general adult medical examination without abnormal findings Lipid Panel 1 Year I10 - Essential (primary) hypertension, Z00.00 - Encounter for general adult medical examination without abnormal findings Comprehensive [place]. Panel Fast 1 Year I10 - Essential (primary) hypertension, Z00.00 - Encounter for general adult medical examination without abnormal findings Complete Blood Count Auto Diff 1 Year I10 - Essential (primary) hypertension, Z00.00 - Encounter for general adult medical examination without abnormal findings Medications: New clindamycin phosphate 1% 1 appl topical DAILY 60 grams 2RF Refilled olmesartan 5 mg PO DAILY 90 tabs 3RF
== END 2024-06-05 10:00 | disposition home or self-care (01) ==
LOC: HO.HMCC 09:15
PROVIDERS: PCP Internal Medicine; Visit Provider Internal Medicine
DX: Z00.00 Encounter for general adult medical examination without abnormal findings (principal); I10 Essential (primary) hypertension

== ENCOUNTER 2024-06-05 09:15 | Outpatient (REF) | payer BC, SELFPAY ==
[2024-06-05 13:32] LABS: MANUAL DIFF FLAG NO
[2024-06-05 13:45] LABS: Appearance Urine Clear; Color Urine Yellow; Glucose Urine UA Negative (Negative); Leukocyte Esterase Urine Trace (Negative); Nitrite Urine Negative (Negative); UMIC TRIGGER UA YES; Urine Blood Trace (Negative); Urine Ketones Negative (Negative); Urine Protein Negative (Neg-Trace)
[2024-06-05 13:48] LABS: Basophils Percent Auto 0.6 % (0-2); Eosinophils Absolute Auto 0.3 X10*3/uL (0.0-0.4); Eosinophils Percent Auto 4.1 % (0-4); Hematocrit 38.9 % (37.0-47.0); Hemoglobin 12.5 g/dl (12.0-16.0); Imm Gran Abs Auto 0.03 X10*3/uL (0.00-0.03); Imm Gran Pct Auto 0.5 % (0.0-0.4); Lymphocytes Percent Auto 30.5 % (20-40); Mean Corpuscular HGB Conc 32.1 g/dl (31.0-35.0); Mean Corpuscular Volume 93.3 fL (80.0-98.0); Mean Platelet Volume 10.9 fL (9.4-12.3); Monocytes Absolute Auto 0.4 X10*3/uL (0.1-1.2); Monocytes Percent Auto 6.6 % (2-11); Neutrophils Absolute Auto 3.9 x10*3/uL (2.0-8.3); Neutrophils Percent Auto 57.7 % (45-73); Platelet Count 285 X10*3/uL (160-400); Red Blood Count 4.17 X10*6/uL (4.20-5.50); Red Cell Distribution Width 13.2 % (11.0-16.0); White Blood Count 6.7 X10*3/uL (4.8-10.8)
[2024-06-05 13:52] LABS: Bacteria Urine 4+ (None Seen); Hyaline Casts Urine 0-2 /LPF (0-2); Squamous Epithelial Cell Urine 0-2 /HPF (0-2); WBC Urine 0-5 /HPF (0-5)
[2024-06-05 14:03] LABS: Alanine Aminotransferase 18 U/L (0-31); Albumin Level 4.3 g/dL (3.5-5.0); Alkaline Phosphatase 53 U/L (39-117); Anion Gap 11 (12-20); Aspartate Amino Transferase 26 U/L (5-31); Bilirubin Total 0.7 mg/dL (0.0-1.0); Blood Urea Nitrogen 11 mg/dL (9-16); Calcium 8.9 mg/dL (8.4-10.2); Carbon Dioxide 26 mmol/L (22-29); Chloride 107 mmol/L (96-108); Cholesterol 188 mg/dL (<200); Estimated Glomerular Filt Rate > 60; Glucose Fasting 91 mg/dL (60-99); HDL Cholesterol 69 mg/dL (>40); LDL Cholesterol Calculated 108 mg/dL (<100); Potassium 3.7 mmol/L (3.3-5.1); Sodium 140 mmol/L (135-145); Total Protein 7.5 g/dL (6.5-8.0); Triglycerides 59 mg/dL (<150)
[2024-06-05 14:19] LABS: TSH reflex Free T4 1.32 uIU/mL (0.32-4.0)
== END 2024-06-05 09:16 | disposition home or self-care (01) ==
LOC: HO.HMGCLDS 09:15
PROVIDERS: PCP Internal Medicine; Visit Provider Internal Medicine
DX: Z00.00 Encounter for general adult medical examination without abnormal findings (principal); I10 Essential (primary) hypertension; Z79.899 Other long term (current) drug therapy
CPT/HCPCS: 36415; 80053; 80061; 81001; 84443; 85025; 96127

== ENCOUNTER 2024-06-17 08:05 | Outpatient (REF) | payer BC, SELFPAY ==
[2024-06-17 10:06] LABS: Appearance Urine Clear; Color Urine Yellow; Glucose Urine UA Negative (Negative); Leukocyte Esterase Urine Negative (Negative); Nitrite Urine Negative (Negative); PH 5.5 (5.0-9.0); Specific Gravity - Urine 1.025 (1.005-1.025); UMIC TRIGGER UA YES; Urine Blood Small (1+) (Negative); Urine Ketones Trace mg/dL (Negative); Urine Protein Negative (Neg-Trace)
[2024-06-17 10:09] LABS: Bacteria Urine None Seen (None Seen); Hyaline Casts Urine 0-2 /LPF (0-2); Squamous Epithelial Cell Urine 0-2 /HPF (0-2); WBC Urine 0-5 /HPF (0-5)
== END 2024-06-17 08:06 | disposition home or self-care (01) ==
LOC: HO.HMGCLDS 08:05
PROVIDERS: PCP Internal Medicine; Visit Provider Internal Medicine
DX: R82.71 Bacteriuria (principal)
CPT/HCPCS: 81001; 87086